=== PATIENT | male | born 1995 | race African-American/Black ===

== ENCOUNTER 2020-02-23 12:37 | Outpatient (REF) | payer SELFPAY | END 2020-02-23 12:38 | disposition home or self-care (01) | LOC: HO.LAB 12:37 | PROVIDERS: Visit Provider Internal Medicine | DX: Z20.828 Contact with and (suspected) exposure to other viral communicable diseases (principal) | CPT/HCPCS: C9803; U0003 ==

== ENCOUNTER → 2022-05-10 13:01 | Outpatient (BNVA) | payer SELFPAY | PROVIDERS: Visit Provider Physician Assistant | DX: Z02.79 Encounter for issue of other medical certificate (principal) ==

== ENCOUNTER 2025-03-31 09:28 | Outpatient (AMB) | payer OTHER, SELFPAY ==
--- NOTE | 2025-03-31 09:29 | A.OFFPC_ITS ---
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 by: Self / Same As Patient Allergies No Known Allergies Allergy (Verified 03/31/25 09:31) Medication List - Last Reconciled 03/31/25 by Anurag Cam MD No Known Home Meds Tobacco use date assessed: 03/31/25 Dental Screening Dental Screen Date: 03/31/25 Did you have a dental visit in the last 12 months?: Yes Did you have a dental problem in the last 6 months where you did not have access to dental care?: No Was dental information given to patient?: Patient has dentist HPI HPI Comments History of Present Illness Details History of Present Illness The patient is a 29 year old male presenting for a general health check-up and medication refill. Genital Herpes: The patient reports a diagnosis of genital herpes, which was made approximately two years ago. He is not currently taking medication for it but is requesting a refill of Valtrex (valacyclovir). Cannabis Use: The patient reports smoking cannabis for 15 years. He smokes three to four times a day. Surgical History: - No prior surgical history reported. Medications: - Previously took Valtrex (valacyclovir) for genital herpes, but is not currently taking it. Social History: - Substance Use: Smokes cannabis daily; reports smoking for 15 years, currently three to four times per day. - Sexual History: Reports being sexually active and using protection. - Employment: Works in [employer] and [employer]. Family History: - Mother: Has multiple medical issues, b ut specifics are unknown to the patient. - Denies any known family history of can cer. Past Medical History - Genital herpes, diagnosed approximatel y 2 years ago. - Denies history of high blood pressure or diabetes. - Denies history of hospitalizations. Health Maintenance - Ordered a comprehensive laboratory wor kup including a complete blood count, comprehensive metabolic panel, hemoglobin A1c, hepatitis B and C panel, HIV test, lipid panel, syphilis test, thyroid studies, urinalysis, vitamin B12, and vitamin D. - Screening for chlamydia and gonorrhea was also ordered. - Plan to follow up in two weeks to disc uss the results and finalize the treatment plan. 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 1. Little interest or pleasure in doing things: several days 2. Feeling down, depressed, or hopeless: several days 3. Trouble falling or staying asleep, or sleeping too much: not at all 4. Feeling tired or having little energy: several days 5. Poor appetite or overeating: not at all 6. Feeling bad about yourself - or that you are a failure or have let yourself or your family down: not at all 7. Trouble concentrating on things, such as reading the newspaper or watching television: not at all 8. Moving or speaking so slowly that other people could have noticed. Or the opposite - being so fidgety or restless that you have been moving around a lot more than usual: not at all 9. Thoughts that you would be better off or of hurting yourself in some way: not at all Total score: 3 Depression Screening Interpretation: Negative Depression Screening Done: Yes 78803 - PHQ-9 Billing: Yes Source: Developed by Drs. Arthur Bernardo, Stormy Felipe, Parminder Soriano and colleagues, with an educational tori from [employer]. Thrive Questionnaire Date Thrive assessed: 03/31/25 I am a: Patient What is your living situation today?: I have a steady place to live Within the past 12 months, did the food you bought not last and you didn't have the money to get more?: Sometimes True Within the past 12 months, did you worry whether your food would run out before you got money to buy more?: Never true Do you have trouble paying for medicines?: Yes Do you have trouble getting transportation to medical appointments?: No Do you have trouble paying your heating and electricity bill?: Yes Do you have trouble taking care of your child, family member or friend?: Yes Are you currently unemployed and looking for a job?: No Are you interested in more education?: No Currently or been in a relationship where the following occur: I choose not to answer THRIVE Score: 2 AUDIT C Alcohol Use Questionnaire (AUDIT-C) 1. How often do you have a drink containing alcohol?: 2-4 times a month 2. How many drinks containing alcohol do you have on a typical day when you are drinking?: 1 or 2 3. How often do you have six or more drinks on one occasion?: Never Total Score: 2 ANDRA-7 AMB Questionnaire ANDRA-7 Date ANDRA - 7 assessed: 03/31/25 Feeling nervous, anxious, or on edge: 1 = Several days Not being able to stop or control worryin = Several days Worrying too much about different things: 1 = Several days Trouble relaxin = Several days Being so restless that it is hard to sit still: 1 = Several days Becoming easily annoyed or irritable: 1 = Several days Feeling afraid as if something awful might happen: 0 = Not at all Total ANDRA-7 score (0-4 normal; 5-9 mild; 10-14 moderate; 15-21 severe): 6 Source: Developed by Drs. Arthur Bernardo, Stormy Felipe, Parminder Soriano and colleagues, with an educational tori from [employer]. ANDRA-7 Assessment Billing ANDRA-7 Assessment Tool: ANDRA-7 Assessment 39547 Review of Systems Narrative Review of Systems - Constitutional: Reports sleeping - decently - . Denies any specific concerns. - HEENT: Reports some ear wax. - Gastrointestinal/Genitourinary: Reports normal bowel and bladder function. 10-point ROS reviewed and negative except as noted in HPI Physical exam (Primary Care) Vital Signs: Last Vital Signs Temp 97.9 F 03/31/25 09:34 Pulse 62 03/31/25 09:34 Resp 18 03/31/25 09:34 BP 131/63 03/31/25 09:34 Pulse Ox 98 03/31/25 09:34 Oxygen Delivery Method Room Air 03/31/25 09:34 BMI result Body Mass Index 29.2 Tobacco/Smoking Status: Tobacco use Status Tobacco use date assessed 03/31/25 03/31/25 09:35 Patient Tobacco Use Status Never used Tobacco 03/31/25 09:35 e-Cigarette/Vaping Use Never Used 03/31/25 09:35 PHQ-9: PHQ-9 Score PHQ-9: Total score 3 03/31/25 09:35 Depression Screening Interpretation: Negative Thrive Assessment: Date of Thrive Assessment Date Thrive assessed 03/31/25 03/31/25 09:31 Currently or been in a relationship where the following occur: I choose not to answer Narrative Physical Exam General: Well-appearing, in no acute distress. Vital signs: Within normal limits. HEENT: Normocephalic, atraumatic. PERRLA, EOMI. Conjunctiva clear, sclera anicteric. Oropharynx clear, mucous membranes moist. TMs intact bilaterally, some ear wax noted. Neck: Supple, no lymphadenopathy, no thyromegaly, no JVD or carotid bruits. Cardiovascular: RRR, normal S1/S2, no murmurs, rubs, or gallops. Peripheral pulses 2+ and symmetric. No edema. Respiratory: Lungs clear to auscultation bilaterally, no wheezes, rales, or rhonchi. Normal effort. Abdomen: Soft, non-tender, non-distended. Normoactive bowel sounds. No hepatosplenomegaly, no masses. MSK: Full range of motion, no joint swelling or deformity. Normal gait. Skin: Warm, dry, intact. No rashes, lesions, or pallor. Notable for a very large birthmark on the right anterior shoulder. Neuro: Alert and oriented x3. Cranial nerves II-XII intact. Strength 5/5 throughout. Sensation intact. Reflexes 2+ symmetric. Normal coordination and gait. Psych: Appropriate mood and affect. Normal judgment and insight. Coding Level of Care Code New Pt Level 4 (84423) Add On Problem Visit Only Diagnoses Genital herpes A60.00 Cannabis use disorder F12.90 Overweight (BMI 25.0-29.9) E66.3 Additional Codes ANDRA-7 Assessment Billing - ANDRA-7 Assessment Tool: ANDRA-7 Assessment 34360 ([id number]) PHQ-9 - 45269 - PHQ-9 Billing: Yes ([id number]) Assessment & Plan Assessment & Plan (1) Genital herpes: Code(s): A60.00 - Herpesviral infection of urogenital system, unspecified Category: Medical (2) Cannabis use disorder: Code(s): F12.90 - Cannabis use, unspecified, uncomplicated Category: Medical (3) Overweight (BMI 25.0-29.9): Code(s): E66.3 - Overweight Category: Medical Plan Consent The patient provided verbal consent for a comprehensive lab workup after the panel of tests was reviewed with him. This includes a complete blood count, comprehensive metabolic panel, hemoglobin A1c, hepatitis B and C, HIV, lipid panel, syphilis, thyroid studies, urinalysis, vitamin levels, and chlamydia and gonorrhea screening. Patient was informed and verbally consented to the use of an ambient scribe for clinic note documentation during this visit. Plan 1. Genital Herpes - The patient's request for a valacyclovir refill is deferred pending review of lab results, specifically kidney function. - Educated the patient that valacyclovir can potentially damage the kidneys and requires periodic monitoring. Discussion Notes I discussed with the patient his request for a refill of valacyclovir for his history of genital herpes. I explained that I would not be refilling the medication until we obtained lab work to ensure his kidneys are functioning well, as the medication can be nephrotoxic. I reviewed the comprehensive panel of labs I was ordering, which includes a CBC, CMP, HbA1c, lipid panel, and screenings for various infectious diseases like HIV, hepatitis, syphilis, chlamydia, and gonorrhea. The patient understood and consented to the plan. I advised him we would schedule a follow-up appointment in two weeks to review all results and determine the next steps. Patient Instructions - Please go to the lab here in the clinic today to have your blood drawn and to provide a urine sample. - Your prescription for Valtrex (valacyclovir) will be filled after we review your lab results to make sure the medicine is safe for your kidneys. - Schedule a follow-up appointment in two weeks to discuss your test results. - Continue to use protection during sexual activity. Medical Decision Making The patient is a 29-year-old male who presented for a general health assessment and a medication refill of valacyclovir for genital herpes, which was diagnosed two years ago. Given the potential nephrotoxicity of valacyclovir and the patient's report that it has been a little bit since his last lab work, I elected to defer the refill pending a comprehensive metabolic panel to evaluate his renal function. To establish a comprehensive baseline of his health, a full panel of labs was ordered, including a CBC, CMP, HbA1c, lipid panel, and screening for various STIs (HIV, hepatitis, syphilis, chlamydia, gonorrhea), to which the patient consented. His social history is notable for daily cannabis use spanning 15 years. The physical exam was unremarkable. The plan is to review the lab results in two weeks to guide further management, including the safe prescribing of valacyclovir. Total Time Statement 45 min Total time spent caring for the patient today includes pre-visit chart review, documentation, review of laboratory and diagnostic imaging results, medication reconciliation, medically necessary evaluation, counseling on diagnoses, care coordination, ordering appropriate tests and medications, review of tests performed by other providers, reporting test results to the patient, and communication with other healthcare providers. Orders: Orders Complete Blood Count Auto Diff Today Z13.9 - Encounter for screening, unspecified Hepatitis B Surface Antigen Today Z13.9 - Encounter for screening, unspecified Comprehensive Met. Panel Today Z13.9 - Encounter for screening, unspecified Hepatitis C Antibody Today Z13.9 - Encounter for screening, unspecified HIV Ab/Ag Today Z13.9 - Encounter for screening, unspecified Hemoglobin A1c Today Z13.9 - Encounter for screening, unspecified Vitamin D 25-OH (D2 and D3) Today Z13.9 - Encounter for screening, unspecified CT NG by PCR Urine Today Z13.9 - Encounter for screening, unspecified Syphilis Screen Today Z13.9 - Encounter for screening, unspecified TSH reflex Free T4 Today Z13.9 - Encounter for screening, unspecified UA CC w/rflx Micro + Cult Today Z13.9 - Encounter for screening, unspecified Lipid Panel Today Z13.9 - Encounter for screening, unspecified Vitamin B12 and Folate Today Z13.9 - Encounter for screening, unspecified Magnesium Today Z13.9 - Encounter for screening, unspecified Hepatitis B Surface Antibody Today Z13.9 - Encounter for screening, unspecified
[2025-03-31 09:34] VITALS: BP 131/63; PULSE 62; RESP 18; TEMP 36.6; O2SAT 98; BMI 29.2
== END 2025-03-31 09:45 | disposition home or self-care (01) ==
PROVIDERS: PCP Student in an Organized Health Care Education/Training Program; Visit Provider Student in an Organized Health Care Education/Training Program
DX: A60.00 Herpesviral infection of urogenital system, unspecified (principal); F12.90 Cannabis use, unspecified, uncomplicated; E66.3 Overweight

== ENCOUNTER → 2025-03-31 09:28 | Outpatient (BNVA) | payer OTHER, SELFPAY | PROVIDERS: Visit Provider Student in an Organized Health Care Education/Training Program | DX: A60.00 Herpesviral infection of urogenital system, unspecified (principal); E66.3 Overweight; Z68.29 Body mass index [BMI] 29.0-29.9, adult; F12.90 Cannabis use, unspecified, uncomplicated; Z71.3 Dietary counseling and surveillance | CPT/HCPCS: 96127; 99202 ==